=== PATIENT | male | born 1975 | race Caucasian/White ===

== ENCOUNTER 2021-05-30 07:41 | Emergency (ER) | payer SELFPAY ==
[~2021-05-30] VITALS: Ht 185.4 cm; Wt 112.1 kg
[2021-05-31] MEDS ORDERED: CHLORTHALIDONE25 MG PO (08:44)
[2021-05-31] MEDS ORDERED: ATORVASTATIN CA20 MG PO (08:45)
[2021-05-31] MEDS ORDERED: ARIPIPRAZOLE10 MG PO (08:45)
[2021-05-31] MEDS ORDERED: FENOFIBRATE160 MG PO (08:48)
[2021-05-31] MEDS ORDERED: FARXIGA10 MG PO (08:48)
[2021-05-31] MEDS ORDERED: CLOPIDOGREL75 MG PO (08:48)
[2021-05-31] MEDS ORDERED: GABAPENTIN800 MG PO (08:49)
[2021-05-31] MEDS ORDERED: LISINOPRIL2.5 MG PO (08:50)
[2021-05-31] MEDS ORDERED: OMEPRAZOLE40 MG PO (08:50)
[2021-05-31] MEDS ORDERED: PAROXETINE HCL40 MG PO (08:53)
[2021-05-31] MEDS ORDERED: NOVOLIN 70100 UNIT/1 SUB-Q ×2 (09:54→09:57)
== END 2021-05-30 12:33 | disposition home or self-care (01) ==
LOC: ED 07:41
DX: U07.1 COVID-19 (principal); Z23 Encounter for immunization; I10 Essential (primary) hypertension; E11.9 Type 2 diabetes mellitus without complications; E78.5 Hyperlipidemia, unspecified
CPT/HCPCS: 71045; 99284-25; A9270; M0243; Q0244; U0003

== ENCOUNTER 2021-05-30 21:13 | Inpatient (IN) | payer SELFPAY ==
[~2021-05-30] VITALS: Ht 185.4 cm; Wt 115.4 kg
--- OUTSIDE RECORDS SUMMARY | 2021-05-30 21:16 | XMS ---
PreManage Notification: ANNA RUBIO [employer] Coord[employer] Events No recent Security Events currently on file CRITERIA MET - [facility] - 2 Visits in 30 Days CARE PROVIDERS There are no care providers on record at this time. Silva has no Care Guidelines for this patient. [place] [facility] (12 MO.) [facility] NOTE: Visits indicate total known visits. ED/[facility] (12 MO.) 05/30/2021 21:14 [facility] [place] TYPE: Emergency COMPLAINT: - FLU SYMPTOMS 05/30/2021 07:42 [facility] [place] TYPE: Emergency COMPLAINT: - BODY ACHE INPATIENT VISIT TRACKING (12 MO.) No inpatient visits to display in this time frame [email or web address]
--- NOTE | 2021-05-30 23:53 | NUR ---
CALLED IN REGARDS TO PT HAVING HAD ANTIBODIES EARLIER TODAY, WITH ORDER NOW FOR REMDESIVIR, PRINTED CIRCUIT BOARDS LAMINATOR WAS CONCERNED THAT THERE WAS A CONTRAINDICATION, SAID HE IS NOT AWARE OF ANY CONTRAINDICATIONS FOR THIS AT THIS TIME.
--- NOTE | 2021-05-31 00:10 | NUR ---
pt ARRIVES TO MS VIA STRETCHER. ORIENTATION TO ROOM PROVIDED, CALL LIGHT IN REACH. VSS. 2L OXYGEN BY NC IN PLACE. pt VERBALIZES UNDERSTANDING TO USE CALL LIGHT WHEN FINISHED.
--- NOTE | 2021-05-31 00:52 | NUR ---
PT HAS REMDESIVIR INFUSING THEN TO FOLLOW WITH BOLUS OF LR PER ORDERS, HE IS RESTING IN BED, HE IS ABLE TO REPOSITION MINIMAL EFFORT. HE REQUEST FOOD, HE REPORTS HE HASNT EATEN IN 4 DAYS, AND HE HASNT SLEPT IN 4 DAYS. PT ADMINSITERED MELATONIN SLEEP AID PER HIS REQUEST. HE IS ON 2L N.C. OXYGEN SATURATION 98% AT REST. HE HAS NO ADVENTITIOUS LUNG SOUND, NOT TO HAVE DIMINISHED LUNG SOUNDS BILATERAL BASES. PT ALERT AND ORIENTED, CALL LIGHT IN REACH, BED ALARM ON FOR PT SAFETY HE HAS TELEMETRY ON FOR CONTINUOUS OXIMETRY AND IVF INFUSING.
--- NOTE | 2021-05-31 01:42 | NUR ---
PT RESTING IN BED EYE CLOSED RR EVEN, NO DISRESS NOTED. PT ALERT TO THIS RN AT BEDSIDE, HE HAD ROLED OVER ON HIS IV LINE AND OCCLUDED IT, HIS PULSE OXIMETRY HAD TURNED OFF. ALL ISSUES ADDRESSED. NO OTHER CONCERNS AT THIS TIME.
--- NOTE | 2021-05-31 02:35 | NUR ---
PT UP TO BATHROOM STANDBY ASSIST, HE AMBULATED WELL, STEADY GAIT, HE HAD BM, AND VOIDED IN TOILET. OXYGEN IN PLACE DURING ACTIVITY, MAINTAINED 90% OXYGEN SATURATION ON 2L N.C., PT REPORTS HE FEELS COLD, TEMP IS 97.9 AT THIS TIME.
--- NOTE | 2021-05-31 03:30 | NUR ---
PT UP TO BATHROOM, DESATURATED TO 85% ON 2L N.C. RECOVERED TO 92% OXYGEN SATURATION WITH REST.
--- NOTE | 2021-05-31 03:46 | NUR ---
PT INSTRUCTED TO SIDE LAY ON, PT TURNED TO RIGHT SIDE, OXYGEN SATURATION WENT UP TO 94% FROM 89% WHILE RESTING IN BED SUPINE. EDUCATIONS PROVIDED.
--- NOTE | 2021-05-31 05:04 | NUR ---
PT ADMITTED JUST BEFORE MIDNIGHT. HE IS ORIENTED X4, HE HAS NOT REPORTED ANY PAIN, HE WAS PROVIDED A LUNCH BOX AFTER ADMISSION PER HIS REQUEST. HE HAS BEEN COOPERATIVE WITH CARE AND POSITIONING IN BE OFF HIS BACK, HE IS CURRENTLY 96% ON 2L OXYGEN SATURATION PER CONTINUOUS OXIMETRY FROM TELE UNIT. HE DOES DESATURATE MILDLY WITH ACTIVITY AND IF LAYING SUPINE IN BED LOW 85% ON 2L N.C., RECOVERS WELL.
--- NOTE | 2021-05-31 05:19 | NUR ---
BED ALARM GOING OFF, pt DENIES WANTING TO GET OOB, STATING, "I WASN'T GONNA GET UP, I WAS JUST SITTING ON THE EDGE OF THE BED". VSS, pt AFEBRILE. ON 2LNC. pt THEN UP SBA TO VOID VIA URINAL, I&O'S COMPLETE. EMESIS BAG, CALL LIGHT BOTH IN REACH. BED ALARM RESUMED.
--- NOTE | 2021-05-31 06:57 | NUR ---
prn zofran given for reported nausea, no emesis. iv site wnl, fluids infusing as directed. no further needs verbalized, call light in reach. bed alarm on for safety.
--- NOTE | 2021-05-31 07:10 | NUR ---
REPORT RECEIVED FROM CHLOÉ ALFARO. PT RESTING IN BED. OXGYEN SATURATION 95% ON 2L O2 BY NC. PT DENIES PAIN, REPORTS NAUSEA IS IMPROVING AFTER MEDICATION ADMINISTRATION. NO ADDITIONAL REQUESTS OR COMPLAINTS AT THIS TIME. CALL LIGHT WITHIN REACH. BED RAILS UP. BED ALARM ON.
[2021-05-31] MEDS ORDERED: CHLORTHALIDONE25 MG PO (08:44)
[2021-05-31] MEDS ORDERED: ARIPIPRAZOLE10 MG PO (08:45)
[2021-05-31] MEDS ORDERED: ATORVASTATIN CA20 MG PO (08:45)
[2021-05-31] MEDS ORDERED: CLOPIDOGREL75 MG PO (08:48)
[2021-05-31] MEDS ORDERED: FARXIGA10 MG PO (08:48)
[2021-05-31] MEDS ORDERED: FENOFIBRATE160 MG PO (08:48)
[2021-05-31] MEDS ORDERED: GABAPENTIN800 MG PO (08:49)
[2021-05-31] MEDS ORDERED: OMEPRAZOLE40 MG PO (08:50)
[2021-05-31] MEDS ORDERED: LISINOPRIL2.5 MG PO (08:50)
[2021-05-31] MEDS ORDERED: PAROXETINE HCL40 MG PO (08:53)
--- NOTE | 2021-05-31 09:04 | NUR ---
PT AWAKE IN ROOM AND INDEPENDENT AROUND THE ROOM. PT NOW BACK IN BED. FRESH ICE WATER GIVEN. NO FURTHER NEEDS AT THIS TIME.
--- NOTE | 2021-05-31 09:20 | NUR ---
MORNING ASSESSMENT AND MEDICATION DUE. PTRESTING IN BED ON BACK WITH HEAD OF BED ELEVARTED TO 30 DEGREES. EDUCATION DONE WITH PT REGARDING ACTIVITY, PRONING, COVID DZ PROCESS, AND I.S. USE. PT DEMONSTRATES USE OF I.S. REACHIGN 1500-2000ML X5. PT ABLE TO REPEAT BACK EDUCATION. PT ALERT AND OREINTED. PT DENIES PAIN AND NAUSEA AT THIS TIME. REPORTS IV CAN BE SALINE LOCKED AT THIS TIME. BOTH IVs FLUSHED AND SALINE LOCKED, ALCOHOL CAPS APPLIED. LUNG SOUNDS CLEAR ALTHOUGH DEMINISHED IN BASES. RT TO BEDSIDE AND INSTRUCTS PT ON CORNET USE WELL. PT DEMOSTRATES USE OF CORNET X10. DRY COUGH CONTINUES, NO SPUTUM NOTED AT THIS TIME. PRN COUGH MEDICATION GIVEN. PT DENIES ANY NUMBNESS TO RIGHT LOWER EXREMITY MENTIONED YESTERDAY. SOFT LOOSE STOOL CONTINUES, STAND BY ASSIST UP TO RESTROOM. PT REMAINS ON 2L O2 BY NC WITH OXYGEN SATURATIONS 89-99%. PT SITTING ON EDGE OF BED, TALKING WITH . PTS JOVANY, UPDATED BY THIS RN PER PT REQUEST. JOVANY STATES HER QUESTIONS AHVE BEEN ANSWERED. NO ADDITIONAL REQUESTS OR COMPLAINTS. CALL LIGHT WITHIN REACH. BED RAILS UP.
[2021-05-31] MEDS ORDERED: NOVOLIN 70100 UNIT/1 SUB-Q ×2 (09:54→09:57)
--- NOTE | 2021-05-31 10:06 | NUR ---
MED REC COMPLETED BY PHARMACY
--- NOTE | 2021-05-31 10:18 | NUR ---
THIS RN TO ROOM TO CHECK ON PT. DR. CASTELAN AT BEDSIDE REVIEWING PLAN OF CARE WITH PT. PT WEANED TO ROOM AIR BY DR. CASTELAN, OXGYEN SATURATION CURRENTLY 94% ON ROOM AIR. PT VERBALZIES UNDERSTANDING OF PLAN OF CARE. JOVANY STATES HER QUESTIONS HAVE BEEN ANSWERED. NO ADDITIONAL REQUESTS OR COMPLAINTS. PT TALKING WITH JOVANY ON PHONE. CALL LIGHT WITHIN REACH. BED RAILS UP.
--- NOTE | 2021-05-31 11:14 | NUR ---
PT CALL LIGHT ON. PT REQUESTS TO TAKE A SHOWER. IV'S COVERED. PT UP TO SHOWER, INDEPEDNANT. PT REMAINS ABOVE 90% ON ROOM AIR WITH ACTIVITY. PT SHOWERS INDEPENDANTLY. LINENS CHANGED. FRESH UNDERWARE, PANTS, GOWN AND SOCKS PROVIDED. COPX REAPPLIED. PT FOUND TO BE 94% AFTER SHOWER. WARM BLANEKTS PROVIDED. MEDICATION GIVEN. PT RESTING ON LEFT SIDE. NO ADDITIONAL REQUESTS OR COMPLAINTS. CALL LIGHT WITHIN REACH. BED RAILS UP.
--- NOTE | 2021-05-31 11:30 | NUR ---
Spoke with Tahir. He states he lives in [facility]. He travels and works for the [employer]. [place] working [place] in [place] He states his is [place] to [place] the end of the week to drive him home. He states he has insurance through [employer] It only cover in the [facility] [place]. I emailed Senia in admitting to check if he has coverage. She replied we could check for OHP or also for financial assistance. Pt plans on dc to home with .
--- NOTE | 2021-05-31 11:30 | NUR ---
Spoke with Tahir. He states he lives in [facility]. He travels and works for the [employer]. He is working [place] He states [place] to [place] the end of the week to drive him home. He states he has insurance through [employer]. It only cover in the [facility] [place]. I emailed Senia in admitting to check if he has coverage. She replied we could check for OHP or also for financial has coverage. She replied we could check for OHP or also for financial assistance. Pt plans on dc to home with .
--- NOTE | 2021-05-31 11:53 | NUR ---
LUNCH ARRIVED, DELIVERED TO PT. INSULIN GIVEN. PT REPORTS 09/12 ABOMDINAL CRAMPING RELATED TO EPISODE OF DIARRHEA. PT REQUESTS TYELNOL. SEE MAR FOR MEDICATION GIVEN. PT SITTING ON EDGE OF BE EATING LUNCH. OXYGEN SATURATION REMAINS ABOVE 90% ON ROOM AIR, CURRENTLY 94%. PT DEMONSTRATES USE OF I.S. REAACHING 1500ML X5. NO ADDITIONAL REQUESTS OR COMPLAINTS. CALL LIGHT WITHIN REACH. BED RAILS UP.
--- NOTE | 2021-05-31 13:17 | NUR ---
THIS RN TO ROOM TO CHECK ON PT. PT UP TO CHAIR. OXGYEN SATURATIONS OF 94% ON ROOM AIR. PT CONTINUES TO REPORT DIARRHEA, MEDICAITON GIVEN. PT REPORTS ABOMDINAL CRAMPING HAS RESOLVED. NO ADDITIONAL REQUESTS OR COMPLAINTS. CALL LIGHT WITHIN REACH.
--- NOTE | 2021-05-31 14:07 | NUR ---
Called and spoke with Elsie, she verifys insurance and assists with OHP. She states she has attempted to contact insurance for claims. She will follow up on this pt.
--- NOTE | 2021-05-31 14:10 | NUR ---
PT AWAKE IN ROOM. PT IS LAYING ON RIGHT SIDE. CALL LIGHT WITHIN REACH. NO FURTHER NEEDS AT THIS TIME.
--- NOTE | 2021-05-31 15:13 | NUR ---
AFTERNOON ASSESSMENT DUE. PT RESTING ON RIGHT SIDE. OXGYEN SATURATION OF 94% ON ROOM AIR. PT DENIES PAIN AND NAUSEA. PT REPORTS HE HAS HAD NO ADDITIONAL EPISODES OF DIARRHEA. PT REPORTS COUGH CONTINUES AND "MAKES ME NAUSOUS SOMETIMES WHEN I COUGH TOO MUCH." PT DENIES NAUSE AT THIS TIME. PT DENIES ANY LOSS OF SENSE OF TASTE OR SMELL. LUNG SOUNDS CLEAR. SLIGHTLY DEMISHED IN LEFT LOWER LOBE. DRY COUGH CONTINUES, PT DENIES SPUTUM PRODUCTION. PT UP TO AMBULATE IN ROOM. PT DEMONSTRATES USE OF I.S. REACHING 1500 X5. PT DEMONSTRATES USE OF CORNET X5. PT DENIES ADDITIONAL REQUESTS OR COMPLAINTS. CALL LIGHT WITHIN REACH.
--- NOTE | 2021-05-31 15:44 | NUR ---
PT CALL LIGHT ON. PT REPORTS HE DROPPED HIS TELE BOX AND "IT'S ALL FUNNY NOW." THIS RN TO ROOM. PT USING CHEMIST ORGANIC "TO WARM UP THE ROOM." PT TAUGHT HOW TO USE THERMOSTAT ON THE WALL. WARM BLANKET PROVIDED. TELEMETRY CPOX REPROGRAMED, OXGYEN SATURATION 91-95% ON ROOM AIR. PT UP IN ROOM, AMBULATING. NO ADDITONAL REQUESTS OR COMPLAINTS. CALL LIGHT WITHIN REACH.
--- NOTE | 2021-05-31 16:02 | NUR ---
PT HERE FOR COVID RELATED PNEUMONIA. PT INDEPENDANT IN ROOM. PT TOLERATING 60G CARB DIET WITH MODERATE APPITITE. BLOOD SUGARS REMAIN VERY ELEVATED, ADDITIONAL SCHEDULE LISPRO AND LANTUS ORDERED/GIVEN. SHOWER THIS SHIFT. PT CONTINUES TO HAVE DIARRHEA. IMMODIUM ORDERED/GIVEN. ONE EPISODE OF 4/10 ABDOMINAL PAIN THIS SHIFT, RESOLVED WITH TYENOL. PT DENIES NAUSEA THIS SHIFT. PT PARTICIPATING IN PRONING PROTOCOL, SIDE LYING ONLY, DECLINES PRONE POSITION. LUNG SOUNDS CLEAR TO DEMINISHED THIS SHIFT. OXYGEN SATURATIONS ABOVE 90% ON ROOM AIR. PT DEMONSTRATES USE OF I.S. AND CORNET. PT VOIDING QUANTITY SUFFICIENT. PT USES CALL LIGTH AND MAKES NEEDS KNOWN.
--- NOTE | 2021-05-31 16:24 | NUR ---
THIS RN TO ROOM TO CHECK ON PT. PT UP AND WALKING AROUND ROOM WHILE WATCHING TV. PT DENIES PAIN, NAUSE, AND FEELINGS OF SHORTNESS OF BREATH. PT NO ADDITIONAL REQUESTS OR COMPLAINTS. OXGYEN SATURATIONS 92% ON ROOM AIR. CALL LIGHT WITHIN REACH.
--- NOTE | 2021-05-31 17:04 | NUR ---
DINNER ARRIVED, DELIVERED TO PT. SLIDING SCALE AND SCHEDULED INSULIN GIVEN. PT UP IN ROOM, INDEPENDANT. PT REPORTS HE WAS ABLE TO TAKE A SMALL NAP. OXGYEN SATUATION 93% ON ROOM AIR. NO ADDIITONAL REQUESTS OR COMPLAINTS. CALL LIGHT WITHIN REACH.
--- NOTE | 2021-05-31 18:23 | NUR ---
PT AWAKE IN BED. CALL LIGHT WITHIN REACH. NO FURTHER NEEDS AT THIS TIME
--- NOTE | 2021-05-31 18:40 | NUR ---
THIS RN TO ROOM TO CHECK ON PT. PT SITTING ON EDGE OF BED. OXYGEN SATURATION 92% ON ROOM AIR. PT DENIES PAIN AND NAUSEA. PT REPORTS HE HAS HAD NO DIARRHEA EPISODES SINCE IMODIUM ADMISTRATION. PT UPDATED ON PLAN OF CARE AND HARNESS PREPARER ARRIVAL. PTS UPDATED ON PT STATUS AND PLAN OF CARE OVER THE PHONE. PT DENIES ADDITIONAL REQUESTS OR COMPLAINTS. CALL LIGHT WITHIN REACH. BED
--- NOTE | 2021-05-31 19:00 | NUR ---
REPORT RECEIVED FROM CHLOÉ ORTEGA. pt AWAKE RESTING IN BED. SPO2 92% ON RA. pt RESTING ON BACK AT THIS TIME, ENCOURAGED TO PRONE. pt STATES "I DID A DIARRHEA". NO NEEDS AT THIS TIME.
--- NOTE | 2021-05-31 21:16 | NUR ---
PT TEL O2 READING 83. PT LAYING ON HIS BACK, WITH HOB FAIRLY FLAT. PT ENCOURAGED TO ROLL OVER ON HIS SIDE, WHICH HE DID TO HIS RIGHT SIDE. WHEN RN LEFT PT ROOM, SATS WERE 92. REPORTED TO PT THAT HIS NURSE WAS "GETTING HIS MEDS" WHEN HE ASKED.
--- NOTE | 2021-05-31 21:50 | NUR ---
SPO2 DROPS TO 86% WHILE RESTING IN BED ON BACK. UP TO RESTROOM, SPO2 INCREASES TO 92%. UNMEASURED VOID. pt VERBALIZES UNDERSTANDING TO VOID IN URINAL. pt REPORTS LIQUID BM. pt BACK IN BED, REQUESTING TO LIE ON BACK FOR SLEEP. ENCOURAGED TO SIDE LIE OR PRONE. SPO2 DROPS TO 87% WHILE ON BACK WITH HOB ELEVATED, 1L OXYGEN BY NC APPLIED, SPO2 INCREASES TO 91-92% WITH 1L IN PLACE. ASSESSMENT COMPLETE. IV SITES FLUSHED WNL. IV MEDICATION INFUSING ORDERED. pt ALERT AND ORIENTED. CALL LIGHT WITHIN REACH. ICE WATER REFILLED AND IN REACH.
--- NOTE | 2021-05-31 22:25 | NUR ---
IV REMDESIVIR COMPLETE. IV SL WNL. pt REQUESTING TO SLEEP, SPO2 WNL WITH 1L OXYBEN BY NC IN PLACE.
--- NOTE | 2021-05-31 23:44 | NUR ---
SPO2 83% ON CONT. PULSE OXIMETRY. RN IN ROOM. OXYGEN OFF, 2L OXYGEN BY NC APPLIED, SPO2 INCREASES TO 92%. ASSISTED pt TO RIGHT SIDE LYING POSIION. pt NOW 93-94% WITH 2L OXYGEN BY NC ON. pt REPORTS JOHN. STATES "I DON'T HAVE A CPAP. THE CPAPS ARE TOO EXPENSIVE." CALL LIGHT IN REACH.
--- NOTE | 2021-06-01 01:39 | NUR ---
CALL LIGHT ANSWERED. pt REQUESTING TO TAKE OXYGEN OFF ITS IRRITATING NOSE AND HES GOING BACK TO SLEEP ON HIS SIDE. OXYGEN OFF AT THIS TIME, WITHIN REACH. SPO2 92% AT THIS TIME WHILE pt AWAKE ON RA.
--- NOTE | 2021-06-01 01:50 | NUR ---
SPO2 83-84% ON RA, pt LYING ON LEFT SIDE. 2L OXYGEN BY OXYMASK APPLIED PER pt REQUEST, DENIES NC. ASSESSMENT COMPLETE. LUNG SOUNDS CLEAR, DIMINISHED IN BASES BILATERALLY. URINE EMPTIED BY pt, UNMEASURED VOID. BOWEL TONES ACTIVE, pt HAS HAD NO ADDITIONAL BMS. CALL LIGHT IN REACH. NO ADDITIONAL REQUESTS.
--- NOTE | 2021-06-01 02:15 | NUR ---
SPO2 81-82%. DOWN TO pt ROOM. OXYMASK REMOVED BY pt. RIGHT SIDE LYING. OXYMASK REAPPLIED. pt STATES "WITH ALL THESE HOLES I DIDN'T THINK I COULD GET ANYTHING FROM IT". EDUCATION PROVIDED. SPO2 INCREASES TO 91% WITH 2L OXYGEN BY OXYMASK.
--- NOTE | 2021-06-01 02:58 | NUR ---
NOTED PT O2 83, CHECKED ROOM, PT SAID HE JUST TOOK IT OFF, HOWEVER, SATS HAD BEEN LOWER THAN 85 FOR SEVERAL MIN. EDUCATED PT TO KEEP HIS O2 ON. IS LAYING ON HIS RIGHT SIDE.
--- NOTE | 2021-06-01 03:30 | NUR ---
CALL LIGHT ANSWERED. pt REQUESTING VITAL SIGNS BE TAKEN HE "DOESN'T FEEL GOOD". pt COMPLAINS OF FEELING CLAMMY, ACHY, AND HAS 5/10 HEADACHE. PRN TYLENOL ADMINISTERED. AFEBRILE. VSS, SITTING UP AT SIDE OF BED SPO2 92% ON RA. pt REMOVED OXYMASK STATING "IT DOESN'T WORK". NC REAPPLIED WITH 2L OXYGEN FOR REST. CBG 242. CALL LIGHT IN REACH. ICE WATER REFILLED.
--- NOTE | 2021-06-01 03:31 | NUR ---
PT SATING AT 82, PT LAYING ON HIS BACK, EYES CLOSED, ASKED IF O2 IN PLACE, HE REACHED UP AND TOUCHED NC WHICH WAS IN HIS NOSE. TOLD PT TO ROLL OVER AND TRY TO STAY ON HIS SIDE TO KEEP SATS ABOVE 88. HE COMPLIED AT THIS TIME.
--- NOTE | 2021-06-01 06:16 | NUR ---
pt RESTLESS THROUGHOUT SHIFT. REQUIRING 2L OXYGEN WITH SLEEP. pt REPORTS SLEEP APNEA, DOES NOT HAVE CPAP MACHINE. pt REMOVING OXYGEN THROUGHOUT SHIFT. SPO2 DROPS TO 83-84% WITHOUT OXYGEN WHILE SLEEPING. WHEN pt UP, AMBULATING IN ROOM SPO2 WNL ON RA. INDEPENDENT IN ROOM. ONE LOOSE BM REPORTED THIS SHIFT. IV SITES SL WNL. PRN TYLENOL X 1 FOR HEADACHE.
--- NOTE | 2021-06-01 06:55 | NUR ---
CHECKED ON pt. RESTING IN BED ON BACK, SLIGHTLY TO RIGHT SIDE, SPO2 93% WITH 2L OXYGEN BY NC IN PLACE. NO REQUESTS AT THIS TIME.
--- NOTE | 2021-06-01 07:11 | NUR ---
CALL LIGHT ANSWERED. 2 CUPS OF ICE WATER PROVIDED.
--- NOTE | 2021-06-01 07:15 | NUR ---
REPORT RECEIVED FROM CHLOÉ HICKS. PT UP IN ROOM, AMBULATING. PT ON ROOM AIR, REMOVED NASAL CANULA PREVIOUSLY ON HIS OWN "BECAUSE I WANTED TO GET UP." PT REPORTS HE HAS A HISTORY OF SLEEP APNEA BUT "I DON'T USE A MACHINE OR GO TO THE DOCTOR BECAUSE THEY ARE OVER AN HOUR AWAY." PT ADVISED THAT FOLLOWING UP FOR HIS SLEEP APNEA WOULD BE RECCOMENDED, GIVEN HIS OXYGEN SATURATIONS AT NIGHT AND WHEN RESTING ON HIS BACK. OXYGEN SATURATION CURRENTLY 94% ON ROOM AIR. ICE WATER PROVIDED. PT DENIES ADDITIONAL REQUESTS OR COMPLAINTS. PT REPORTS HE WILL PLACE HIS OWN BREAKFAST ORDER. CALL LIGHT WITHIN REACH.
--- NOTE | 2021-06-01 07:36 | NUR ---
PATIENT SITTING UP IN CHAIR 84-85% ON ROOM AIR. REQUESTED PATIENT PRONE AND SATS ARE HIGH 90%.
--- NOTE | 2021-06-01 08:05 | NUR ---
MORNING ASSESSMENT AND MEDICATION DUE. PT NOTED TO BE DROPING TO 87% ON ROOM AIR. PT IN PRONE POSITION IN BED. PT ADVISED TO PLACE HIS OXYGEN BACK ON. PT REPORTS HE NEEDS HELP TO DO THIS. THIS RN TO ROOM. PT UP TO SIT ON EDGE OF BED AND OXGYEN SATURATIONS CLIMBS TO 92%. PT PLACED ON 2L O2 BY NC WITH OXYGEN SATURATION CLIMBING TO 95-96%. BREAKFAST DELIVERED TO PT. PT DENIES PAIN AND NAUSEA. PT REPORTS ONLY ONE EPISODE OF DIARRHEA LAST NIGHT. IVs ASSESSED, WNL, BOTH SALINE LOCKED WITH ALOCHOL CAP APPLIED. FIELD START IV LEFT IN PLACE PER PT REQUEST. PT ALERT AND ORIENTED TO ALL. LUNG SOUNDS CLEAR IN ALL LOBES. PT DEMONSRATES USE OF I.S. REACHING 1500ML X5. CPOX REMAINS IN PLACE. PT EATING BREAKFAST, EDUCATION DONE WITH PT REGARDING WHY ORANGE JUICE IS NOT ADVISED GIVEN HIS BLOOD SUGAR. PT DEMONSTRATES UNDERSTANDING AND REQUESTS TEA. NO ADDITIONAL REQUESTS OR COMPLAINTS. CALL LIGHT WITHIN REACH. BED RAILS UP.
--- NOTE | 2021-06-01 09:24 | NUR ---
CPOX NOTED TO BE 85%. THIS RN TO ROOM. PT LYING ON HIS BACK RESTING WITH EYES CLOSED. 2L O2 BY NC IN PLACE. PT ENCOURAGED TO TURN ONTO HIS SIDE. PT TURNS TO RIGHT SIDE, SUPPORTED WITH PILLOWS. OXGYEN SATURATIONS CLIMB TO 90-95%. PT DENIES ADDITIONAL REQUESTS OR COMPLAINTS. CALL LIGHT WITHIN REACH. BED RAILS UP.
--- NOTE | 2021-06-01 10:06 | NUR ---
PT AWAKE IN ROOM AND ASKING FOR COUGH MEDICINE. CHLOÉ RIOS NOTIFIED. NO FURTHER NEEDS AT THIS TIME.
--- NOTE | 2021-06-01 10:13 | NUR ---
VITALS DUE. PT REQUESTS COUGH MEDICATION. SEE MAR FOR MEDICATION GIVEN. VITAL SIGNS STABLE. PT REMAINS ON 2L O2 BY NC TO MAINTAIN OXGYEN SATURATIONS ABOVE 90% WHEN RESTING IN BED. PT ABLE TO TAKE OXGYEN OFF AND TOELRATE ROOM AIR WITH OXGYEN SATURATIONS 91-95% WHILE AMBULATING IN ROOM. PT WORKING ON PHONE. PT DENIES ADDITIONAL REQUESTS OR COMPLAINTS. CALL LIGHT WITHIN REACH. BED RAILS UP.
--- NOTE | 2021-06-01 10:20 | NUR ---
No plan for dc today. will arrive on Monday to transport pt home.
--- NOTE | 2021-06-01 11:30 | NUR ---
THIS RN TO ROOM TO CHECK ON PT. PT RESTING ON BACK, OXYGEN SATURATION 88-89% ON 2L O2 BY NC. PT THEN ANSWERS PHONE AND SITS UP TO EDGE OF BED AND CLIMBS TO 96% ON 2L O2 BY NC. PT REMINDED NOT TO LINE ON HIS BACK. PT VERBALIZES UNDRESTANDING. BLOOD SUGAR REMAINS ELEVATED NOW 306, WILL GIVEN SLIDING SCALE INSULIN WHEN LUNCH ARRIVES. PT REPORTS HE HAS PLACED. PT REMAINS SITTING ON EDGE OF BED. PT REPORTS HE FEELS "ABOUT 70% OF NORMAL" STATING THAT REMAINING PROBELMS ARE "I'M A LITTLE ACHY ADN WHEN I USE THAT BREATHIN TOY MY CHEST HURTS. OTHER THAN THAT EVERY THING ELSE IS FINE." NO ADDITIONAL REQUESTS OR COMPLAINTS. CALL LIGHT WITHIN REACH. BED RAILS UP.
--- NOTE | 2021-06-01 13:29 | NUR ---
DUE TO PRECAUTIONS, AM UNABLE TO VISIT PT AT THIS TIME. WILL FOLLOW NEEDED
--- NOTE | 2021-06-01 13:35 | NUR ---
THIS RN TO ROOM TO CHECK ONPT. PT RESTING ON RIGHT SIDE, OXYGEN SATURATIONS 95% ON 2L O2 BY NC. PT DENIES REQUESTS OR COMPLAINTS AT THIS TIME STATING "I'M JUST WAITING FOR THE DOCTOR." CALL LIGHT WITHIN REACH. BED RAILS UP.
--- NOTE | 2021-06-01 14:30 | NUR ---
Notified by Dr. Choi pt will more than likely dc tomorrow to the [employer] [facility] and will need o2 during ride home to [facility]. Called and spoke with Juanita and they do cover [place]. UPdated pt has insurance that covers in the state [place] and he will leave Monday for a 3 day trip home. Bella spoke with tax accounting manager, Hermelinda, they will bring a set up with 02 concentrator and a 60 L tank to use during the day while driving. They will check if they can bill through the [place] office so pts insurance will cover. Faxed face sheet, insurance card, H&P, and progress note. Added [employer] [place] address to face sheet for 02 delivery and note will send 02 qualifier tomorrow when sure pt will dc.
--- NOTE | 2021-06-01 14:36 | NUR ---
AFTERNOON ASSESSMENT AND MEDICATION DUE. PT SITTING ON EDGE OF BED. PT DENIES PAIN AND NAUSEA. PT REPORTS HE WOULD LIKE TO GO HOME BUT HE DECIDED TO STAY ANOTHER NIGHT PER DR. COOPER RECCOMENDATIONS. OXGYEN SATURATION 95% ON 2L O2 BY NC. PT ENCOURAGED TO LEAVE OXGYEN IN PLACE ALL THE TIME RATHER THAN TAKEING IT ON AND OFF. PT VERBALIZES UNDERSTANDING AND AGREES TO LEAVE NC IN PLACE RATHER THAN TAKING IT OFF WHEN HE GETS UP. PT DENIES PAIN AND NAUSEA. PT REQUESTS RIGHT HAND IV BE REMOVED "IT BOTHERS ME A LOT." IV DC'D PER PROTOCOL, GAUZE AND COBAN APPLIED. FIELD START REMAINS IN PLACE TO LEFT AC PER PT REQUEST. PT ALERT AND ORIENTED TO ALL. PT DENIES CHANGES IN TASTE OR SMELL. PT REPORTS HE HAS HAD NO EPISODES OF DIARRHEA TODAY. LUNG SOUNDS CLEAR IN ALL LOBES. ONGOING OCCATIONAL DRY COUGH. PT DEMONSTRATES USE OF I.S. REACHING 1500ML X5. PT RETURNS TO LYING ON RIGHT SIDE, PT ENCOURAGED TO PRONE, DECLINES AT THIS TIME. PT WATCHING TV. OXGYEN SATRUATION 92% ON 2L O2 BY NC WHILE RESTING ON SIDE. ICE WATER REFILLED. NO ADDITIONAL REQUESTS OR COMPLAINTS. CALL LIGHT WITHIN REACH. BED RAILS UP.
--- NOTE | 2021-06-01 15:30 | NUR ---
PT HER EFOR COVID RELATED PENUMONIA. PT INDEPENDANT IN ROOM. PT TOLERATING 60G CARB DIET WITH GOOD APPTITIE. BLOOD SUGARS REMAIN VERY ELEVATED. ADDITIONAL INSULIN ADDED THIS SHIFT. PT REMAINS ON 2L O2 BY NC, TO MAINTAIN OXGYEN SATURATIONS ABOVE 90%. PT ENCOUGED TO LEAVE OXGYEN ON EVEN WITH ACTIVITY. PT DEMONSTRATES USE OF I.S. PT DECLINES TIME IN PRONE POSITION BUT IS AGREEABLE TO LYING ON SIDES AND GETTING UP TO CHAIR. OXGENATION NOTED TO IMPROVE WITH ACITIVITY AND DECREASE WHEN PT IS SLEEPING (SEE RN NOTES). LUNG SOUNDS CLEAR THROUGHOUT. PT DENIES DIARRHEA OR LOSS OF SENSE OF TASTE OR SMELL SO FAR THIS SHIFT. PT DENIES NAUSEA AND PAIN THIS SHIFT. PT AFEBRIAL SO FAR THIS SHIFT. PT VOIDING QUANTITY SUFFICIENT. PT USES CALL LIGHT AND MAKES NEEDS KNOWN.
--- NOTE | 2021-06-01 16:05 | NUR ---
THIS RN TO ROOM TO CHECK ON PT. PT RESTING ON RIGHT SIDE. OXGYEN SATURATION 90-93% ON 2L O2 BY NC. PT DENIES PAIN OR NAUSEA. DINNER ORDER PLACED. PT DENIES ADDITIONAL REQUESTS OR COMPLAINTS. CALL LIGHT WITHIN REACH. BED RAILS UP.
--- NOTE | 2021-06-01 17:00 | NUR ---
DINNER DELIVERED TO PT. INSULIN GIVEN PER MD ORDER. PT LYING ON BACK, OXYGEN SATURATION DROPS TO 85%. PT STATES "I KNOW, I'M NOT SUPOSED TO LIE ON MY BACK." PT UP TO SIT AT EDGE OF BED, OXYGEN SATURATIONS CLIMB TO 94% ON 2L O2 BY NC. PT SITTING ON EDGE OF BED EATING DINNER. PT DENIES ANY ADDITIONAL EPISODES OF DIARRHEA, NAUSEA, OR PAIN. NO ADDITIONAL REQUESTS OR COMPLAINTS. CALL LIGHT WITHIN REACH. BED RAILS UP.
--- NOTE | 2021-06-01 18:22 | NUR ---
THIS RN TO ROOM TO CHECK ON PT. VITALS DUE. VITAL SIGNS STABLE. PT REMAINS ON 2L O2 BY NC WITH OXYGEN SATURATIONS ABOVE 90%. ICE WATER REFILLED. PT REQUESTS COUGH MEDICATION (SEE MAR FOR MEDICATION GIVEN). PT LYING ON RIGHT SIDE. BED RAILS UP. CALL LIGHT WITHIN REACH. NO ADDITIONAL REQUESTS OR COMPLAINTS.
--- NOTE | 2021-06-01 19:20 | NUR ---
REPORT RECEIVED FROM CHLOÉ ORTEGA. pt RESTING IN BED 2L OXYGEN BY NC IN PLACE. SPO2 90% ON TELE CPOX.
--- NOTE | 2021-06-01 22:00 | NUR ---
pt AWAKE RESTING IN BED, SPO2 89% WITH 2L IN PLACE WHILE pt LYING ON BACK, INCREASES TO 92% WHILE SITTING. VSS. NO COUGH PRESENT. ASSESSMENT COMPLETE. LUNG SOUNDS CLEAR THROUGHOUT ALL LOBES. HUMIDIFIER REMOVED FROM OXYGEN REQUESTED. LIGHTS OFF IN ROOM. CALL LIGHT IN REACH.
--- NOTE | 2021-06-01 22:27 | NUR ---
CALL LIGHT ANSWERED. IV REMDESIVIR COMPLETE. IV SL WNL. CALL LIGHT IN REACH. 2L OXYGEN BY NC IN PLACE, SPO2 91% ON CPOX.
--- NOTE | 2021-06-02 00:08 | NUR ---
CHECKED ON pt. RESTING IN BED ON RIGHT SIDE. BREATHING UNLABORED. 2L OXYGEN BY NC IN PLACE. SPO2 93% ON CPOX.
--- NOTE | 2021-06-02 01:31 | NUR ---
pt LYING IN BED ON RIGHT SIDE. 2L OXYGEN BY NC IN PLACE, SPO2 91% ON TELE 1 CPOX.
--- NOTE | 2021-06-02 04:37 | NUR ---
CHECKED ON pt. LYING IN BED ON RIGHT SIDE, BREATHING UNLABORED. SPO2 90% WITH 2L OXYGEN BY NC IN PLACE.
--- NOTE | 2021-06-02 06:28 | NUR ---
pt AWAKE RESTING IN BED AFTER LAB DRAW. ASSESSMENT COMPLETE. LUNG SOUNDS CLEAR THROUGHOUT ALL LOBES. pt DENIES ANY PAIN. SPO2 88-89% WHILE LYING SUPINE. ENCOURAGED TO MOVE TO SIDE, LEFT SIDE LYING, SPO2 INCREASES TO 93% WITH 2L OXYGEN BY NC. VSS. ICE WATER REFILLED. CALL LIGHT IN REACH.
--- NOTE | 2021-06-02 07:28 | NUR ---
SHIFT REPORT FROM NURSE LORD. PT IS ASLEEP IN BED; NO APPARENT SIGNS OF DISTRESS. SPO2 AT 95%.
--- NOTE | 2021-06-02 07:57 | NUR ---
PATIENT IS RESTING IN BED. DID NOT NEED ANYTHING AT THIS TIME. CALL LIGHT IN REACH.
--- NOTE | 2021-06-02 08:30 | NUR ---
IN ROOM FOR MORNING MEDS AND ASSESSMENT. PT STATES THAT HE NEEDS TO TALK TO THE DOCTOR BECBOBBYUSE HE "HAS TO GO HOME TODAY" HE CANT "TAKE IT HERE ANY LONGER". PT TOOK OFF NC THIS AM AND O2 DROPPED TO 81% ON RA. PT STAYS IN THE 90S SPO2 WITH 2L NC. LUNG SOUNDS ARE CLEAR, BOWEL TONES ACTIVE. HR REMAINED STABLE IN THE 70S DURING THE DESAT. PT REPORTS NOT FEELING SOB DURING DESAT. PT REITERATED REPEATEDLY THAT HE WOULD LIKE TO LEAVE TODAY. CBG 239 REQUIRING 3UNITS SS INSULIN. NO OTHER CARE NEEDS AT THIS TIME. CALL LIGHT WITHIN REACH.
--- NOTE | 2021-06-02 10:00 | NUR ---
Spoke with pt and updated he did not qualify for 02 at he remained above 90%. He is pleased with this. He denies needs and plans on dc to the [facility] when discharged.
--- NOTE | 2021-06-02 12:14 | NUR ---
Received a call from [facility] in [place], [place]. Attempted to return call and spoke with a coworker. Updated, Tahir did not qualify for 02.
--- NOTE | 2021-06-02 12:15 | NUR ---
IN ROOM TO CHECK CBG. PT INFORMED THAT DISCHARGE ORDERS ARE IN; PT WAS ALREADY DRESSED AND "READY TO GO". WILL ORGANIZE TRANSPORT FOR PT [place] [facility].
--- NOTE | 2021-06-02 14:05 | NUR ---
PT READY FOR DISCHARGE. HAS EATEN LUNCH, IS DRESSED AND BELONGINGS ARE PACKED. IV REMOVED, VSS. TRANSPORT TO [facility] AT 1430.
--- NOTE | 2021-06-02 14:16 | NUR ---
DUE TO PRECAUTIONS I AM UNABLE TO VISIT PT IN PERSON. WILL FOLLOW
--- NOTE | 2021-06-02 14:45 | NUR ---
PT D/C'D. [facility] ARRIVED TO TAKE PT TO [facility]. PT AMBULATED TO TRANSPORT VEHICLE.
== END 2021-06-02 14:40 | disposition home or self-care (01) | DRG 177 ==
LOC: ED 21:13 → MS 23:17
PROVIDERS: ADMIT Student in an Organized Health Care Education/Training Program; ATTEND Student in an Organized Health Care Education/Training Program
PROC: 8E0ZXY6 Isolation (ICD-10-PCS; principal; 2021-05-30)
PROC: XW033E5 Introduction of Remdesivir Anti-infective into Peripheral Vein, Percutaneous Approach, New Technology Group 5 (ICD-10-PCS; 2021-05-30)
PROC: 3E0333Z Introduction of Anti-inflammatory into Peripheral Vein, Percutaneous Approach (ICD-10-PCS; 2021-05-30)
DX: U07.1 COVID-19 (principal); J12.82 Pneumonia due to coronavirus disease 2019; J96.01 Acute respiratory failure with hypoxia; I12.9 Hypertensive chronic kidney disease with stage 1 through stage 4 chronic kidney disease, or unspecified chronic kidney disease; N18.9 Chronic kidney disease, unspecified; E11.22 Type 2 diabetes mellitus with diabetic chronic kidney disease; G47.33 Obstructive sleep apnea (adult) (pediatric); E78.5 Hyperlipidemia, unspecified; F39 Unspecified mood [affective] disorder; Z86.73 Personal history of transient ischemic attack (TIA), and cerebral infarction without residual deficits; Z79.4 Long term (current) use of insulin; Z79.02 Long term (current) use of antithrombotics/antiplatelets; Z79.899 Other long term (current) drug therapy
CPT/HCPCS: 71045; 80053; 81001; 83036; 83605; 85025; 86140; 87040; 94668; 94760; 94761; 99285-25; A9270; J1100; J1650; J1815; J2405; J7050; J7121

== ENCOUNTER 2021-06-05 10:36 | Emergency (ER) | payer OTHER ==
[~2021-06-05] VITALS: Ht 185.4 cm; Wt 115.3 kg
[~2021-06-05 10:36] MED LIST: ARIPIPRAZOLE10 MG PO; ATORVASTATIN CA20 MG PO; CHLORTHALIDONE25 MG PO; CLOPIDOGREL75 MG PO; FARXIGA10 MG PO; FENOFIBRATE160 MG PO; GABAPENTIN800 MG PO; LISINOPRIL2.5 MG PO; NOVOLIN 70100 UNIT/1 SUB-Q; OMEPRAZOLE40 MG PO; PAROXETINE HCL40 MG PO
--- OUTSIDE RECORDS SUMMARY | 2021-06-05 10:40 | XMS ---
PreManage Notification: ANNA RUBIO Security Public Health Nutritionist Events No recent Security Events currently on file CRITERIA MET - [facility] - 2 Visits in 30 Days CARE PROVIDERS There are no care providers on record at this time. Silva has no Care Guidelines for this patient. [facility] MO[facility] NOTE: Visits indicate total known visits. ED/C VISIT TRACKING (12 MO.) [facility] COMPLAINT: - R SIDE PAIN,URINE PROBLEM,FLU SYMPTOMS 05/30/2021 21:14 [facility] TYPE: Emergency COMPLAINT: - FLU SYMPTOMS 05/30/2021 07:42 [facility] [place] TYPE: Emergency COMPLAINT: - BODY ACHE DIAGNOSES: - Hyperlipidemia, unspecified - Type 2 diabetes mellitus without complications - Nausea with vomiting, unspecified - Essential (primary) hypertension - COVID-19 - Encounter for immunization INPATIENT VISIT TRACKING (12 MO.) 05/30/2021 23:17 [facility] [place] TYPE: Medical Surgical COMPLAINT: - COVID PNA DIAGNOSES: - Type 2 diabetes mellitus with diabetic chronic kidney disease - Personal history of transient ischemic attack (TIA), and cerebral infarction without residual deficits - FDC (current) use of insulin - Unspecified mood [affective] disorder - COVID-19 - Essential (primary) hypertension - Hypertensive chronic kidney disease with stage 1 through stage 4 chronic kidney disease, or unspecified chronic kidney disease - Chronic kidney disease, unspecified - Acute respiratory failure with hypoxia - termite helper (current) use of antithrombotics/antiplatelets - Obstructive sleep apnea (adult) (pediatric) - Hyperlipidemia, unspecified - Type 2 diabetes mellitus without complications - Other termite control technician (current) drug therapy [email or web address]
[2021-06-05] MEDS ORDERED: HYDROCODON-ACE1 EA11 PO (13:21)
== END 2021-06-05 13:32 | disposition home or self-care (01) ==
LOC: ED 10:36
DX: U07.1 COVID-19 (principal); J12.82 Pneumonia due to coronavirus disease 2019; R09.1 Pleurisy; I10 Essential (primary) hypertension; E11.9 Type 2 diabetes mellitus without complications; E78.5 Hyperlipidemia, unspecified; Z86.73 Personal history of transient ischemic attack (TIA), and cerebral infarction without residual deficits; Z79.899 Other long term (current) drug therapy; Z79.4 Long term (current) use of insulin
CPT/HCPCS: 71045; 71260; 80053; 81001; 85025; 85379; 99285-25; J7030; Q9967